=== PATIENT | male | born 1965 | race Caucasian/White ===

== ENCOUNTER 2017-02-09 14:02 | Emergency (ER) | payer OTHER ==
[~2017-02-09] VITALS: Ht 188 cm; Wt 139.2 kg
[~2017-02-09 14:02] MED LIST: ADVIL,NUPRIN,M200 MG PO; ASPIR-LOW81 MG PO; AUGMENTIN875 MG PO; HYDROCODON-ACE1 EAC7 PO; JANUVIA100 MG PO; MOBIC15 MG PO; MOBIC7.5 MG PO; NAPROXEN500 MG PO; NO HOME MEDS; NO MEDS; NOHOMEMEDS; Vicodin,Norco 5/325 PO; ZYRTEC10 M3 PO
[2017-02-09 15:41] VITALS: BP 145/88
== END 2017-02-09 15:41 | disposition home or self-care (01) ==
LOC: EME 14:02
DX: K42.9 Umbilical hernia without obstruction or gangrene (principal); I10 Essential (primary) hypertension; E11.9 Type 2 diabetes mellitus without complications; Z79.84 Long term (current) use of oral hypoglycemic drugs
CPT/HCPCS: 99281; 99284; J2270

== ENCOUNTER → 2017-04-12 20:17 | Emergency (ER) | payer OTHER ==
[2017-04-12 20:40] LABS: POINT-OF-CARE METER ID UU13113778
== END | disposition left against medical advice (07) ==
LOC: EME 20:17
DX: R07.9 Chest pain, unspecified (principal); Z53.21 Procedure and treatment not carried out due to patient leaving prior to being seen by health care provider
CPT/HCPCS: 82948

== ENCOUNTER 2017-04-12 22:45 | Emergency (ER) | payer OTHER ==
[~2017-04-12] VITALS: Ht 188 cm; Wt 138.1 kg
[2017-04-13 00:17] LABS: HEMATOCRIT 43.8 % (38.0-50.0); MCH 31.5 PG (29.0-34.0); MCHC 34.5 G/DL (30.0-36.0); MCV 91.4 FL (86-99); MEAN PLAT.VOLUME 8.9 uM^3 (9.0-12.4); PLATELET COUNT 243 K/uL (156-360); RBC DIS.WIDTH-CV 12.4 % (11.8-14.6); RBC DIS.WIDTH-SD 41.2 % (39-53); RED BLOOD COUNT 4.79 M/uL (4.00-5.50); WHITE BLOOD COUNT 9.4 K/uL (4.1-10.2)
[2017-04-13 00:29] LABS: INTER. NORMALIZED RATIO 1.1; PROTHROMBIN TIME 11.5 (9.2-11.2); PTT 29.4 (25-32)
[2017-04-13 00:32] LABS: CHLORIDE 108 mEq/L (99-109); POTASSIUM 3.6 mEq/L (3.7-5.4); SODIUM 139 mEq/L (136-147)
[2017-04-13 00:34] LABS: GLUCOSE 172 mg/dL (70-99)
[2017-04-13 00:35] LABS: ANION GAP 11 MEQ/L (2-14)
[2017-04-13 00:38] LABS: GFR ESTIMATE (CALCULATED) > 59 mL/min/; UREA NITROGEN (BUN) 15 mg/dL (9-23)
[2017-04-13 00:39] LABS: TROP-I INTERPRETATION NEGATIVE; TROPONIN-I < 0.01 ng/mL (0.0-0.30)
[2017-04-13 02:01] LABS: TROP-I INTERPRETATION NEGATIVE; TROPONIN-I < 0.01 ng/mL (0.0-0.30)
[2017-04-13 02:42] VITALS: BP 132/87
== END 2017-04-13 02:43 | disposition home or self-care (01) ==
LOC: EME 22:45
PROVIDERS: Emergency Medicine
DX: R07.9 Chest pain, unspecified (principal); F32.9 Major depressive disorder, single episode, unspecified
CPT/HCPCS: 71020; 80048; 84484; 85027; 85610; 85730; 90837; 93005; 99281; 99284

== ENCOUNTER 2017-09-06 11:26 | Emergency (ER) | payer OTHER ==
[~2017-09-06] VITALS: Ht 188 cm; Wt 139.7 kg
[2017-09-06 12:27] LABS: HEMATOCRIT 44.9 % (38.0-50.0); MCH 31.5 PG (29.0-34.0); MCHC 34.1 G/DL (30.0-36.0); MCV 92.4 FL (86-99); MEAN PLAT.VOLUME 9.1 uM^3 (9.0-12.4); PLATELET COUNT 235 K/uL (156-360); RBC DIS.WIDTH-CV 12.7 % (11.8-14.6); RBC DIS.WIDTH-SD 42.9 % (39-53); RED BLOOD COUNT 4.86 M/uL (4.00-5.50); WHITE BLOOD COUNT 6.9 K/uL (4.1-10.2)
[2017-09-06 12:48] LABS: TROP-I INTERPRETATION NEGATIVE; TROPONIN-I < 0.01 ng/mL (0.0-0.30)
[2017-09-06 13:20] LABS: ANION GAP 10 MEQ/L (2-14); CHLORIDE 105 MEQ/L (99-109); GFR ESTIMATE (CALCULATED) > 59 mL/min/; GLUCOSE 202 mg/dL (70-99); POTASSIUM 3.9 MEQ/L (3.7-5.4); SAMPLE HEMOLYSIS CHECK 0; SAMPLE ICTERIC CHECK 0; SAMPLE LIPEMIA CHECK 0; SODIUM 140 MEQ/L (136-147); UREA NITROGEN (BUN) 15 mg/dL (9-23)
[2017-09-06 14:19] LABS: TROP-I INTERPRETATION NEGATIVE; TROPONIN-I < 0.01 ng/mL (0.0-0.30)
[2017-09-06 16:07] LABS: TROP-I INTERPRETATION NEGATIVE; TROPONIN-I < 0.01 ng/mL (0.0-0.30)
[2017-09-06 16:18] VITALS: BP 136/82
== END 2017-09-06 16:19 | disposition home or self-care (01) ==
LOC: EME 11:26
PROVIDERS: Nurse Practitioner Family
DX: R10.13 Epigastric pain (principal); I10 Essential (primary) hypertension; F41.9 Anxiety disorder, unspecified; R56.9 Unspecified convulsions; K21.9 Gastro-esophageal reflux disease without esophagitis
CPT/HCPCS: 71020; 80048; 84484; 85027; 85379; 93005; 99281; 99284

== ENCOUNTER 2017-09-20 21:25 | Emergency (ER) | payer OTHER ==
[~2017-09-20] VITALS: Ht 188 cm; Wt 140.3 kg
[2017-09-20 22:19] LABS: HEMATOCRIT 45.9 % (38.0-50.0); MCH 31.9 PG (29.0-34.0); MCHC 34.6 G/DL (30.0-36.0); MCV 92.2 FL (86-99); MEAN PLAT.VOLUME 9.3 uM^3 (9.0-12.4); PLATELET COUNT 243 K/uL (156-360); RBC DIS.WIDTH-CV 12.6 % (11.8-14.6); RBC DIS.WIDTH-SD 42.6 % (39-53); RED BLOOD COUNT 4.98 M/uL (4.00-5.50); WHITE BLOOD COUNT 7.7 K/uL (4.1-10.2)
[2017-09-20 22:22] LABS: ADD MIUA? NO; BILIRUBIN NEGATIVE; BLOOD NEGATIVE; COLOR YELLOW ((YELLOW)); GLUCOSE (STRIP) NEGATIVE; KETONES NEGATIVE; LEUKOCYTES NEGATIVE; NITRITE NEGATIVE; PROTEIN (STRIP) NEGATIVE; SPECIFIC GRAVITY 1.027 (1.000-1.030); UCUL ADDED? NO; UROBILINOGEN 0.2 MG/DL (0.2-1.0)
[2017-09-20 22:30] LABS: CHLORIDE 104 mEq/L (99-109); POTASSIUM 3.7 mEq/L (3.7-5.4); SODIUM 141 mEq/L (136-147)
[2017-09-20 22:33] LABS: ANION GAP 13 MEQ/L (2-14); GLUCOSE 139 mg/dL (70-99)
[2017-09-20 22:36] LABS: GFR ESTIMATE (CALCULATED) > 59 mL/min/ (58.99-99999)
[2017-09-20 22:37] LABS: UREA NITROGEN (BUN) 14 mg/dL (9-23)
[2017-09-20 22:43] LABS: TOTAL BILIRUBIN 0.6 mg/dL (0.0-1.0)
[2017-09-20 22:44] LABS: ALKALINE PHOSPHATASE 49 IU/L (3-129)
[2017-09-20 22:46] LABS: DIRECT BILIRUBIN 0.2 mg/dL (0.0-0.3)
[2017-09-20 22:47] LABS: LIPASE 23 U/L (1.0-51.0)
[2017-09-21 00:30] VITALS: BP 147/81
== END 2017-09-21 00:30 | disposition home or self-care (01) ==
LOC: EXP 21:25 → EME 21:25 → EXP 09-21 00:30
DX: R10.13 Epigastric pain (principal); R10.814 Left lower quadrant abdominal tenderness; K21.9 Gastro-esophageal reflux disease without esophagitis; N28.89 Other specified disorders of kidney and ureter; R19.7 Diarrhea, unspecified; K76.0 Fatty (change of) liver, not elsewhere classified; K42.9 Umbilical hernia without obstruction or gangrene; Z90.49 Acquired absence of other specified parts of digestive tract
CPT/HCPCS: 74177; 80048; 80076; 81003; 83690; 85027; 99281; 99284; J7030

== ENCOUNTER 2017-10-03 14:30 | Emergency (ER) | payer OTHER ==
[~2017-10-03] VITALS: Ht 188 cm; Wt 142.7 kg
[2017-10-03] MEDS ORDERED: AMOXICILLIN500 M1 PO (16:30)
[2017-10-03 16:40] VITALS: BP 141/82
== END 2017-10-03 16:42 | disposition home or self-care (01) ==
LOC: EME 14:30
DX: J02.9 Acute pharyngitis, unspecified (principal)
CPT/HCPCS: 87651 90; 99281; 99283